=== PATIENT | male | born 1955 | race Caucasian/White ===

== ENCOUNTER 2016-10-27 11:52 | Emergency (ER) | payer OTHER ==
[~2016-10-27] VITALS: Ht 182.9 cm; Wt 97.7 kg
[2016-10-27 11:20] VITALS: BP 132/84; PULSE 106; O2SAT 96
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
--- NOTE | 2016-10-27 13:04 | DRSVH ---
PROCEDURE: X-RAY LUMBAR SPINE, 2 OR 3 VIEW INDICATIONS: pain TECHNIQUE: 3 views of the lumbar spine were acquired. COMPARISON: None. FINDINGS: Bones: 5 [id number] vertebrae are present. Degenerative changes throughout the lumbar spine gre atest inferiorly. There is normal bony alignment. Possible minimal height loss in the superior L4 ve rtebral body endplate of unknown age. Remaining vertebral bodies demonstrate normal height. No suspi cious bony lesions. Soft tissues: Overlying bowel gas pattern is normal. No suspicious soft tissue calcifications. IMPRESSION: Possible minimal height loss in the superior L4 vertebral body endplate is chronic appear ing but technically age-indeterminate. Dictated by: Aleksandar Herron M.D. on 10/27/2016 at 13:00 Approved by: Aleksandar Herron M.D. on 10/27/2016 at 13:02
--- NOTE | 2016-10-27 13:05 | DRSVH ---
PROCEDURE: X-RAY LEFT ELBOW COMPLETE, MINIMUM THREE VIEWS ([id number]) INDICATIONS: pain TECHNIQUE: 3 views of the elbow were acquired. COMPARISON: None. FINDINGS: Bones: No fractures or dislocations. No suspicious bony lesions. Soft tissues: No elbow joint effusion. No suspicious soft tissue calcifications. IMPRESSION: No acute fractures or dislocations. Dictated by: Aleksandar Herron M.D. on 10/27/2016 at 13:02 Approved by: Aleksandar Herron M.D. on 10/27/2016 at 13:03
[2016-10-27] MEDS ORDERED: IBUP400T22 PO (13:41)
[2016-10-27 13:56] VITALS: BP 142/81; PULSE 97; O2SAT 96
== END 2016-10-27 14:07 | disposition home or self-care (01) ==
LOC: SED 11:52
DX: S39.012A Strain of muscle, fascia and tendon of lower back, initial encounter (principal); S50.02XA Contusion of left elbow, initial encounter; S50.312A Abrasion of left elbow, initial encounter; M54.2 Cervicalgia; V49.40XA Driver injured in collision with unspecified motor vehicles in traffic accident, initial encounter; Y93.89 Activity, other specified; Y99.8 Other external cause status; Y92.410 Unspecified street and highway as the place of occurrence of the external cause; Z85.46 Personal history of malignant neoplasm of prostate